=== PATIENT | female | born 1980 | race Caucasian/White ===

== ENCOUNTER 2017-01-18 17:08 | Emergency (ER) | payer MEDICAID ==
[2017-01-18 18:00] VITALS: BP 160/100
--- NOTE | 2017-01-18 18:18 | EDM.PDOC ---
[id number]: SPIDER BITE Time Seen by Provider: 01/18/17 18:05 Source of Information: Reports: Patient History Limitations: Reports: No Limitations - History of Present Illness INITIAL COMMENTS - FREE TEXT/NARRATIVE: 36-year-old female has a reddened sore pruritic area on the anterior aspect of the right lower leg. She was bitten 4 days ago, she is certain it was a spider bite and very possibly a brown recluse type of spider. 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 The redness is starting to expand slightly and the symptoms are not improving and she is here for treatment. She otherwise does not feel ill, she has no fever, there is no significant expansion of the redness or warmth. Duration: Day(s): (Lesion is been present for 4 days) Location: Reports: Lower Extremity, Right Quality: Reports: Ache, Burning Severity: Mild Associated Symptoms: Reports: No Other Symptoms. 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 GI Surgical History: Reports: Bariatric Procedure Social & Family History - Tobacco Use Smoking Status *Q: Current Every Day Smoker Years of Tobacco use: 20 Packs/Tins Daily: 0.5 Second Hand Smoke Exposure: Yes - Alcohol Use Days Per Week of Alcohol Use: 1 Number of Drinks Per Day: 1 Total Drinks Per Week: 1 - Recreational Drug Use Recreational Drug Use: Yes Recreational Drug Type: Reports: Amphetamines (Speed), Barbituates, Marijuana/ Hashish, Methamphetamine, Other (see below) (opiates) Recreational Drug Use Frequency: Socially Recreational Drug Last Use: see notes under "Course" ED ROS GENERAL - Review of Systems Review Of Systems: See Below Constitutional: Denies: Fever, Chills, Malaise Respiratory: Denies: Shortness of Breath GI/Abdominal: Denies: Nausea, Vomiting Neurological: Reports: No Symptoms ED EXAM, ANIMAL BITE - Physical Exam Exam: See Below Exam Limited By: No Limitations General Appearance: Alert, No Apparent Distress Respiratory/Chest: No Respiratory Distress Cardiovascular: Regular Rate, Rhythm Extremities: Other (Exam is otherwise limited to the right lower extremity. Patient has a 3 cm round reddened macular lesion with the small central purulent blister.) Course - Vital Signs Last Recorded V/S: Last Vital Signs Temp 97.3 F 01/18/17 17:59 Pulse 83 01/18/17 17:59 Resp 14 01/18/17 17:59 BP 160/100 H 01/18/17 17:59 Pulse Ox 96 01/18/17 17:59 - Re-Assessments/Exams Free Text/Narrative Re-Assessment/Exam: 01/18/17 18:17 Patient was encouraged to continue topical care and observation, and will be placed on Augmentin 875 mg twice daily for at least 5 days. She will return if worsening. Departure - Departure Time of Disposition: 18:38 Disposition: Home, Self-Care 01 Condition: Good Clinical Impression: Spider bite Qualifiers: Encounter type: initial encounter Injury intent: accidental or unintentional Qualified Code(s): T63.301A - Toxic effect of unspecified spider venom, accidental (unintentional), initial encounter - Discharge Information Instructions: Brown Recluse Spider Bite, [id number] Referrals: Nicholas Ceballos MD [Primary Care Provider] - Forms: ED Department Discharge Care Plan Goals: Take antibiotic twice daily with food for at least 5 days and continue topical treatment as needed. Ibuprofen or naproxen should help. Return anytime if worsening or concerns.
== END 2017-01-18 18:39 | disposition home or self-care (01) ==
LOC: JP.ED 17:08
DX: T63.301A Toxic effect of unspecified spider venom, accidental (unintentional), initial encounter (principal); F17.210 Nicotine dependence, cigarettes, uncomplicated; Z98.84 Bariatric surgery status
CPT/HCPCS: 99282; 99283

== ENCOUNTER 2018-12-24 00:10 | Emergency (ER) | payer SELFPAY ==
[2018-12-24 01:17] VITALS: BP 116/73
[2018-12-24] MEDS ORDERED: Bacitracin Oint 1 GM U/D Packet TOP ONE (01:22)
--- NOTE | 2018-12-24 01:25 | EDM.PDOC ---
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 glass and now has a laceration bottom of her left foot no functional complaints, injury happened at work Bilateral Foot Pain Score (Numeric/FACES): 8 - Related Data Allergies Allergy/AdvReac Type Severity Reaction Status Date / Time No Known Allergies Allergy Verified 12/24/18 01:05 Home Meds: Home Meds Gabapentin 600 mg PO BID 06/25/14 [History] Gabapentin [Neurontin] 900 mg PO BEDTIME 01/14/15 [History] Baclofen 1 tab PO TID 12/24/18 [History] Dextroamphetamine/Amphetamine [Adderall] 30 mg PO DAILY 12/24/18 [History] Fludrocortisone [Florinef] 1 tab PO DAILY 12/24/18 [History] Metoprolol Tartrate 2 tab PO BID 12/24/18 [History] Past Medical History Cardiovascular History: Reports: Other (See Below) Other Cardiovascular History: posterial ortho static syndrome 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 GI Surgical History: Reports: Bariatric Procedure Social & Family History - Tobacco Use Smoking Status *Q: Current Every Day Smoker Years of Tobacco use: 20 Packs/Tins Daily: 1 Used Tobacco, but Quit: No Second Hand Smoke Exposure: Yes - Caffeine Use Caffeine Use: Reports: Tea - Alcohol Use Days Per Week of Alcohol Use: 0 - Recreational Drug Use Recreational Drug Use: No ED ROS GENERAL - Review of Systems Review Of Systems: See Below Constitutional: Reports: No Symptoms Musculoskeletal: Reports: Foot Pain Skin: Reports: Wound ED EXAM, SKIN/RASH Exam: See Below Text/Narrative:: Examination the left foot there is a 2 cm laceration plantar aspect of the foot , full range motion digits pedal pulses +2 and sensation ED SKIN PROCEDURES - Laceration/Wound Repair Left Foot Lac/Wound length In cm: 2 Appearance: Subcutaneous Distal NVT: Neuro & Vascular Intact, No Tendon Injury Anesthetic Type: Local Local Anesthesia - Lidocaine (Xylocaine): 1% Plain Local Anesthetic Volume: 2cc Skin Prep: Saline Saline Irrigation (cc's): 60 Exploration/Debridement/Repair: Wound Explored, In a Bloodless Field, Explored to Base Closed with: Sutures Suture Size: 3-0 # of Sutures: 2 Suture Type: Nylon, Interrupted Tetanus Status Addressed: Yes Complications: No Course - Vital Signs Last Recorded V/S: Last Vital Signs Temp 98 F 12/24/18 01:15 Pulse 93 12/24/18 01:15 Resp 16 12/24/18 01:15 BP 116/73 12/24/18 01:15 Pulse Ox 99 12/24/18 01:15 - Orders/Labs/Meds Meds: Medications Discontinued Medications Generic Name Dose Route Start Last Admin Trade Name Mary PRN Reason Stop Dose Admin Bacitracin 1 dose 12/24/18 01:22 12/24/18 01:44 Bacitracin Oint 1 Gm TOP 12/24/18 01:23 1 dose ONETIME ONE Administration Lidocaine HCl 5 ml 12/24/18 01:22 12/24/18 01:45 Xylocaine-Mpf 1% INJECT 12/24/18 01:23 5 ml ONETIME ONE Administration Departure - Departure Time of Disposition: 02:01 Disposition: Home, Self-Care 01 Condition: Fair Clinical Impression: Laceration of left foot Qualifiers: Encounter type: initial encounter Qualified Code(s): S91.312A - Laceration without foreign body, left foot, initial encounter - Discharge Information Instructions: Sutured Wound Care, [id number] Referrals: Nicholas Ceballos MD [Primary Care Provider] - Forms: ED Department Discharge Additional Instructions: Suture removal in 10 days, follow wound care instruction sheet return to emergency department or to primary care for suture removal - Assessment/Plan Plan: Assessment Acuity = acute Site and laterality = 2 cm laceration left surface left foot Etiology = trauma with glass Manifestations = none] Location of injury = work Lab values = x-ray shows no foreign body Plan Suture removal in 10 days, follow-up primary care return to emergency department for rule follow wound care instruction sheet This note was dictated using [email or web address] voice recognition software please call with any questions on syntax or grammar.
--- NOTE | 2018-12-24 01:44 | CRLCR ---
HISTORY: Laceration of the foot after stepping on glass. COMPARISON: None available. FINDINGS: The left foot is examined with AP and lateral views. There is no sign of fracture or dislocation. There is soft tissue irregularity of the plantar aspect of the anterior foot, in the area of the metatarsal heads and distal metatarsal shaft. There is no sign of any gas in the soft tissue or radiopaque foreign body. There is no sign of gas or radiopaque foreign bodies in the soft tissues elsewhere in the foot. No significant degenerative disease is seen. IMPRESSION: Normal left foot. Dictated by Abilio Noyola MD @ Dec 24 2018 1:42AM Signed by Dr. Abilio Noyola @ Dec 24 2018 1:43AM
== END 2018-12-24 02:16 | disposition home or self-care (01) ==
LOC: JP.ED 00:10
DX: S91.312A Laceration without foreign body, left foot, initial encounter (principal); F17.210 Nicotine dependence, cigarettes, uncomplicated; W45.8XXA Other foreign body or object entering through skin, initial encounter; Z79.899 Other long term (current) drug therapy
CPT/HCPCS: 12001; 73620; 99283; J2001

== ENCOUNTER 2022-07-24 07:58 | Day surgery (SDC) | payer MEDICAID, OTHER ==
[~2022-07-24 07:58] MED LIST: Bupivacaine 0.5% 50 ML MDV ONE; Bupivacaine 0.5%/EPINEPHrine 1:200,000 50 ML MDV ONE; Lidocaine 1% with EPINEPHrine 1:100,000 50 ML MDV ONE
[2022-07-24] MEDS ORDERED: Acetaminophen 500 MG Tab PO ONE (08:00)
[2022-07-24] MEDS ORDERED: ceFAZolin 2 GM in Sodium Chloride 0.9% 50 ML IV ONE ×2 (08:30→10:00)
[2022-07-24] MEDS ORDERED: Dextrose 5%-Lactated Ringers 1,000 ML IV SCH (08:30)
[2022-07-24] MEDS ORDERED: Ketamine 16 MG in Sodium Chloride 0.9% 19.84 ML IV SCH (09:45)
[2022-07-24] MEDS ORDERED: Ketamine 500 MG/5 ML MDV IV SCH (09:45)
[2022-07-24] MEDS ORDERED: fentaNYL 250 MCG/5 ML SDV ONE ×2 (09:55→11:36)
[2022-07-24] MEDS ORDERED: Glycopyrrolate 0.2 MG/ML 5 ML MDV ONE (10:10)
[2022-07-24] MEDS ORDERED: Ondansetron 4 MG/2 ML SDV ONE (10:10)
[2022-07-24] MEDS ORDERED: Dexamethasone 4 MG/ML SDV ONE (10:10)
[2022-07-24] MEDS ORDERED: Propofol 200 MG/20 ML SDV ONE (10:10)
[2022-07-24] MEDS ORDERED: Rocuronium 50 MG/5 ML Vial ONE (10:10)
[2022-07-24] MEDS ORDERED: Neostigmine Methylsulfate 1 MG/ML 5 ML Syringe ONE (10:10)
[2022-07-24] MEDS ORDERED: Meropenem 500 MG SDV ONE (12:25)
[2022-07-24] MEDS ORDERED: Meropenem 500 MG SDV IRR ONE (12:31)
[2022-07-24] MEDS ORDERED: Linezolid 600 MG/300 ML Premix Bag IRR ONE (12:32)
[2022-07-24] MEDS ORDERED: Ketorolac 30 MG/ML SDV ONE (13:29)
[2022-07-24] MEDS ORDERED: Hydrocortisone Sodium Succinate 100 MG/2 ML SDV IV PRN (14:27)
[2022-07-24] MEDS ORDERED: Famotidine 20 MG/2 ML SDV IV PRN (14:28)
[2022-07-24] MEDS ORDERED: diphenhydrAMINE 50 MG/ML SDV IV PRN (14:28)
[2022-07-24] MEDS ORDERED: Sodium Chloride 0.9% 1,000 ML IV SCH (14:30)
[2022-07-24] MEDS ORDERED: HYDROmorphone 1 MG/ML Syringe IVPUSH PRN (14:36)
[2022-07-24] MEDS ORDERED: HYDROmorphone 2 MG Tab PO PRN (14:42)
[2022-07-24] MEDS ORDERED: ferumoxytoL 510 MG in Sodium Chloride 0.9% 100 ML IV ONE (14:45)
[2022-07-24] MEDS ORDERED: Acetaminophen 500 MG Tab PO PRN (15:30)
[2022-07-24 15:59] VITALS: BP 146/71; PULSE 75
[2022-07-25] MEDS ORDERED: Ibuprofen 600 MG Tab PO PRN (01:00)
== END 2022-07-24 16:03 | disposition home or self-care (01) ==
LOC: JP.SDS 07:58
PROVIDERS: ATTEND Surgery
DX: K43.0 Incisional hernia with obstruction, without gangrene (principal); D51.9 Vitamin B12 deficiency anemia, unspecified; E55.9 Vitamin D deficiency, unspecified; G47.00 Insomnia, unspecified; F41.9 Anxiety disorder, unspecified; F90.9 Attention-deficit hyperactivity disorder, unspecified type; F17.210 Nicotine dependence, cigarettes, uncomplicated; D50.8 Other iron deficiency anemias; Z98.890 Other specified postprocedural states; Z79.899 Other long term (current) drug therapy
CPT/HCPCS: 81025; A9270-GY; C1781; J0171; J0690; J1100; J1885; J2020; J2185; J2405; J2704; J2710; J2795; J3010; J3490; J7030; J7121; Q0138